=== PATIENT | female | born 1985 | race Two or more races ===

== ENCOUNTER 2018-10-25 13:05 | Outpatient (CLI) | payer OTHER | END 2018-10-25 23:59 | disposition home or self-care (01) | LOC: WOU 13:05 | PROVIDERS: ATTEND Podiatrist Foot & Ankle Surgery | DX: L60.0 Ingrowing nail (principal) | CPT/HCPCS: 11730; A6402; Z7610 ==

== ENCOUNTER 2018-11-07 09:55 | Outpatient (CLI) | payer OTHER | END 2018-11-07 23:59 | disposition home or self-care (01) | LOC: WOU 09:55 | PROVIDERS: ATTEND Podiatrist Foot & Ankle Surgery | DX: R60.0 Localized edema (principal); M79.671 Pain in right foot; Z98.890 Other specified postprocedural states | CPT/HCPCS: 99213; A6402; Z7610; G0463 ==